=== PATIENT | female | born 1990 | race Caucasian/White ===

== ENCOUNTER 2023-11-12 19:01 | Observation (INO) | payer MEDICAID, SELFPAY ==
[2023-11-12] VITALS (25 sets, daily range): BP systolic 101–126; BP diastolic 53–97; PULSE 100–227; RESP 16–36; TEMP 37.9–38.1; O2SAT 95–100; BMI 28.3; BMI 30.1
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
--- NOTE | 2023-11-12 19:32 | ED.GENADULT ---
HPI - General Adult General Chief complaint: Alcohol/Intoxication Stated complaint: alcohol withdrawal Time Seen by Provider: 11/12/23 19:25 Source: patient Mode of arrival: ambulatory Limitations: no limitations History of Present Illness HPI narrative: 33-year-old female presenting today with alcohol withdrawal. Patient states that she has been drinking a L of crown daily for about a month. Her last drink she states was yesterday. Patient describes a history of seizure and delirium tremens with alcohol withdrawal. She states that she is having acute anxiety. She feels her heart racing. The other concerns she has she woke up this morning with a terrible sore throat and achiness from head to toe. She has been having chills today. And presents today with a temperature of 100.3?. She does tell me that she had a UTI last week and has finished her antibiotics. Patient does have a history of alcohol use disorder and anxiety, states she has not been taking any of her prescribed medications for several weeks now. Related Data Home Medications Medication Instructions Recorded Confirmed clindamycin phosphate 2 % vaginal 1 appful vaginal QPM 11/12/23 11/12/23 cream Allergies Allergy/AdvReac Type Severity Reaction Status Date / Time ketorolac Allergy Intermediate Verified 11/12/23 19:15 tramadol Allergy Verified 11/12/23 19:15 Review of Systems Status of ROS: Reports: 10 or more systems reviewed and unremarkable except as noted in History and below PFSH PFS Social History Smoking Status: Never smoker Do you use any of these nicotine containing products: None How often do you have a drink containing alcohol: 4 or more times a week How many standard drinks containing alcohol do you have on a typical day: 10 or more How often do you have six or more drinks on one occasion: Daily or almost daily AUDIT-C Alcohol total score: 12 Non-prescribed substance use: amphetamines/methamphetamines service: No Exam Narrative: Exam Narrative: Well-nourished well-developed patient, jittery, anxious. Alert and oriented x3. Answers questions appropriately. Mood and affect are appropriate. Thoughts are goal oriented and rational. No tangential or magical thinking noted. Patient speaks in full sentences without needing to catch her breath. Speech is not slurred or pressured. HEENT: Normocephalic atraumatic. Pupils are equally round reactive to light. Extraocular muscles are intact. Conjunctivae are moist without any icterus noted. Moist mucous membranes. Posterior pharynx is normal. Neck is soft without any lymphadenopathy or thyromegaly. No masses are appreciated. Cardiovascular: Tachycardic, no murmurs. Lungs: Clear to auscultation bilaterally no wheezes rhonchi or rales are appreciated. Patient takes deep breaths without any discomfort. Abdomen: Soft and nontender nondistended with normal bowel sounds. No guarding or rebound. Extremities: Bilateral lower extremities are without edema. Skin: Well perfused without any obvious rashes. Const: Vital Signs, click to edit/add: Vital Signs - 24 hr 11/12/23 19:06 11/12/23 19:23 11/12/23 19:25 Temperature 100.3 F H Pulse Rate 111 H Pulse Rate [Right Pulse Oximeter] 227 H Respiratory Rate 18 Blood Pressure 110/61 Blood Pressure [Ri ght Upper Arm] 114/60 Pulse Oximetry 97 99 97 Oxygen Delivery Me thod Room Air 11/12/23 19:26 11/12/23 19:30 11/12/23 19:31 Temperature Pulse Rate 112 H 112 H 115 H Pulse Rate [Right Pulse Oximeter] Respiratory Rate Blood Pressure 119/72 Blood Pressure [Ri ght Upper Arm] Pulse Oximetry 97 96 95 Oxygen Delivery Me thod 11/12/23 19:49 11/12/23 20:01 11/12/23 20:02 Temperature Pulse Rate 119 H Pulse Rate [Right Pulse Oximeter] Respiratory Rate Blood Pressure 126/97 H 113/62 Blood Pressure [Ri ght Upper Arm] Pulse Oximetry 99 Oxygen Delivery Me thod 11/12/23 20:15 11/12/23 20:16 Temperature Pulse Rate 122 H 121 H Pulse Rate [Right Pulse Oximeter] Respiratory Rate Blood Pressure 101/59 L Blood Pressure [Ri ght Upper Arm] Pulse Oximetry 98 100 Oxygen Delivery Me thod Course Course ED Course: IV was established and patient received a L of normal saline, phenobarbital and IV Ativan. EKG, read by me, shows sinus tachycardia with a pulse of 107, patient goes up in the 120s when I am in the room examining her. CBC shows an elevated white cell count 13.24, normal hematocrit hemoglobin, platelet count 247. Lactate elevated at 2.8. Urinalysis unremarkable. Urine drug screen positive for amphetamines, methamphetamines, benzodiazepines Electrolytes showing mild hyponatremia with a sodium of 134, otherwise unremarkable. Normal LFTs. Normal lipase. [place] screen negative. Strep DNA negative. Triple swab is negative. Lab work negative for salicylates, ethanol and acetaminophen. Chest x-ray pending at this time. Blood cultures and urine culture pending. Vital Signs Vital signs: Initial Vital Signs Temperature 100.3 F H 11/12/23 19:06 Temperature Source Temporal Artery Scan 11/12/23 19:06 Pulse Rate 227 H 11/12/23 19:06 Pulse Rhythm Regular 11/12/23 19:06 Respiratory Rate 18 11/12/23 19:06 Blood Pressure 114/60 11/12/23 19:06 Blood Pressure Mean 78 11/12/23 19:06 Blood Pressure Position Sitting 11/12/23 19:06 Pulse Oximetry 97 11/12/23 19:06 Oxygen Delivery Method Room Air 11/12/23 19:06 Vital Signs Temperature 100.3 F H 11/12/23 19:06 Pulse Rate 227 H 11/12/23 19:06 Respiratory Rate 18 11/12/23 19:06 Blood Pressure 114/60 11/12/23 19:06 Pulse Oximetry 97 11/12/23 19:06 Oxygen Delivery Method Room Air 11/12/23 19:06 Temperature 100.3 F H 11/12/23 19:06 Pulse Rate 121 H 11/12/23 20:16 Respiratory Rate 18 11/12/23 19:06 Blood Pressure 101/59 L 11/12/23 20:16 Pulse Oximetry 100 11/12/23 20:16 Oxygen Delivery Method Room Air 11/12/23 19:06 Medications Administered Medications: Discontinued Medications Generic Name Dose Route Start Last Admin Trade Name Freq PRN Reason Stop Dose Admin Sodium Chloride 1,000 mls @ 1,000 mls/hr 11/12/23 19:30 11/12/23 19:45 0.9 % Sodium Chloride 1000 Ml IV 11/12/23 20:29 1,000 mls/hr .Q1H JOSE Administration Lorazepam 1 mg 11/12/23 19:23 11/12/23 19:53 Lorazepam 2 Mg/Ml Inj IVP 11/12/23 19:24 1 mg ONCE ONE Administration Phenobarbital 130 mg 11/12/23 19:23 11/12/23 20:08 Phenobarbital 65 Mg/Ml Inj IVP 11/12/23 19:24 130 mg ONCE ONE Administration Medical Decision Making MDM Narrative Medical decision making narrative: 33-year-old female presenting in acute alcohol withdrawal and fever of unclear etiology. Patient will be admitted for further management. Lab Data Lab results reviewed: Yes I reviewed the patient's lab results Labs: Lab Results 11/12/23 11/12/23 11/12/23 Range/Units 19:36 19:50 19:55 WBC 13.24 H (4.50-11.00) K/uL RBC 4.10 (4.00-5.20) m/uL Hgb 13.0 (12.0-16.0) gm/dL Hct 39.8 (33.0-51.0) % MCV 97 (80-100) fL MCH 32 (26-34) pg MCHC 33 (32-36) gm/dL RDW Coeff of Stefan 12.6 (11.5-15.5) % Plt Count 247 (140-440) K/uL Neut % (Auto) 84.8 H (42.0-72.0) % Lymph % (Auto) 5.3 L (20-44) % [place] % (Auto) 9.3 (0.0-11.0) % Eos % (Auto) 0.1 (0.0-7.0) % Baso % (Auto) 0.2 (0.0-3.0) % Neut # (Auto) 11.20 H (1.7-7.0) K/uL Lymph # (Auto) 0.70 L (0.90-2.90) K/uL [place] # (Auto) 1.20 H (0.00-0.90) K/UL Eos # (Auto) 0.00 (0.00-0.50) K/uL Baso # (Auto) 0.00 (0.00-0.30) K/uL Abs Immat Gran (auto) 0.00 (0.00-0.30) K/uL Imm/Tot Granulo (auto) 0.3 % Sodium 134 L (135-149) mmol/L Potassium 3.7 (3.6-5.1) mmol/L Chloride 104 (96-114) mmol/L Carbon Dioxide 22 (20-32) mmol/L Anion Gap 8 (7-15) mEq/L BUN 11 (5-24) mg/dL Creatinine 0.9 (0.5-1.5) mg/dL Estimated Creat Clear 80.75 Estimated GFR 87 ml/min Glucose 97 (60-115) mg/dL Lactate 2.8 H (0.5-1.9) mmol/L Calcium 9.0 (8.4-10.6) mg/dL Magnesium 1.5 (1.5-2.6) mg/dL Total Bilirubin 0.5 (0.1-1.5) mg/dL Direct Bilirubin 0.1 (0.0-0.5) mg/dL AST 25 (12-35) U/L ALT 19 (4-35) U/L Alkaline Phosphatase 68 (40-150) U/L Total Protein 7.0 (6.0-8.3) g/dL Albumin 4.0 (3.3-5.0) g/dL Lipase 69 (23-300) U/L Urine Color Yellow (Yellow) Urine Appearance Slightly Cloudy A (Clear) Urine pH 7.0 (5.0-8.5) Ur Specific [place] 1.020 (1.000-1.030) Urine Protein Negative (Negative) Urine Glucose (UA) Negative (Negative) Urine Ketones Negative (Negative) Urine Blood Negative (Negative) Urine Nitrite Negative (Negative) Urine Bilirubin Negative (Negative) Urine Urobilinogen 1.0 (0.2-1.0) Ur Leukocyte Esterase Negative (Negative) Urine RBC 0-2 (0-2) Urine WBC 0-2 (0-5) Ur Squamous Epith Cells Moderate A (None-Few) Urine Bacteria Few A (None) Urine HCG, Qual Negative (Negative) Salicylates < 1.0 L (1.0-10) mg/dL Urine Opiates Screen Negative (Negative) Ur Oxycodone Screen Negative (Negative) Urine Methadone Screen Negative (Negative) Acetaminophen < 10.0 L (10.0-30.0) ug/mL Ur Barbiturates Screen Negative (Negative) U Tricyclic Antidepress Negative (Negative) Ur Phencyclidine Scrn Negative (Negative) Ur Amphetamines Screen POSITIVE A (Negative) U Methamphetamines Scrn POSITIVE A (Negative) U Benzodiazepines Scrn POSITIVE A (Negative) Urine Cocaine Screen Negative (Negative) U Marijuana (THC) Screen Negative (Negative) Ur Drug Screen Comment See Note Ethyl Alcohol < 0.01 L (0.01-0.03) % SARS-CoV-2 (PCR) Negative SARS-CoV-2 (Negative) Monoscreen Negative (Negative) Influenza Type A (PCR) Negative PCR FLU A (Negative) Influenza Type B (PCR) Negative PCR FLU B (Negative) RSV (PCR) Negative PCR RSV (Negative) Group A Strep DNA NOT DETECTED (Not Detectd) ECG Data Attestation: I personally reviewed and interpreted this ECG as follows: Discharge Plan Discharge Clinical Impression: Fever, Alcohol withdrawal syndrome Patient Disposition: Admitted As Observation Condition: Stable Prescriptions: No Action clindamycin phosphate 2 % cream 1 appful vaginal QPM Follow Up/Referrals: Provider,Not a Local [Primary Care Provider] -
[2023-11-12 19:45] LABS: Appearance Urine Slightly Cloudy (Clear); Bilirubin Urine Negative (Negative); Blood Urine Negative (Negative); Color Urine Yellow (Yellow); Glucose Urine Negative (Negative); Ketones Urine Negative (Negative); Leukocyte Esterase Urine Negative (Negative); Nitrite Urine Negative (Negative); Protein Urine Negative (Negative)
[2023-11-12] MEDS: 0.9 % SODIUM CHLORIDE 1000 ml 1,000 ML IV (19:45)
[2023-11-12] MEDS: LORazepam 2 MG/ML inj 1 MG IVP (19:53)
[2023-11-12 19:56] LABS: Amphetamine Screen Urine POSITIVE (Negative); Barbiturate Screen Urine Negative (Negative); Benzodiazepines Screen Urine POSITIVE (Negative); Cannabinoid Screen Urine Negative (Negative); Cocaine Screen Urine Negative (Negative); Methadone Screen Urine Negative (Negative); Methamphetamines Screen Urine POSITIVE (Negative); Opiate Screen Urine Negative (Negative); Oxycodone Screen Urine Negative (Negative); Phencyclidine Screen Urine Negative (Negative); Tricyclic Antidepressant Urine Negative (Negative)
[2023-11-12 19:59] LABS: Lactate* 2.8 mmol/L (0.5-1.9)
[2023-11-12 20:03] LABS: Basophils Percent Auto 0.2 % (0.0-3.0); Eosinophils Percent Auto 0.1 % (0.0-7.0); Hematocrit 39.8 % (33.0-51.0); Immature Granulocytes Pct Auto 0.3 %; Lymphocytes Percent Auto 5.3 % (20-44); Mean Corpuscular HGB Conc 33 gm/dL (32-36); Mean Corpuscular Hemoglobin 32 pg (26-34); Mean Corpuscular Volume 97 fL (80-100); Monocytes Percent Auto 9.3 % (0.0-11.0); Neutrophils Percent Auto 84.8 % (42.0-72.0); Platelet Count* 247 K/uL (140-440); RDW Coefficient of Variation % 12.6 % (11.5-15.5); White Blood Count* 13.24 K/uL (4.50-11.00)
[2023-11-12] MEDS: PHENobarbitaL 65 MG/ML inj 130 MG IVP (20:08)
[2023-11-12 20:14] LABS: Bacteria Urine Few; RBC Urine 0-2 (0-2); Squamous Epithelial Cell Urine Moderate (None-Few); Ur HCG Qualitative* Negative (Negative); WBC Urine 0-2 (0-5)
[2023-11-12 20:15] LABS: Slide Review Reflex No
[2023-11-12 20:17] LABS: Chloride* 104 mmol/L (96-114); Potassium* 3.7 mmol/L (3.6-5.1); Sodium* 134 mmol/L (135-149)
[2023-11-12 20:19] LABS: Alkaline Phosphatase* 68 U/L (40-150); Aspartate Amino Transferase* 25 U/L (12-35); Bilirubin Direct* 0.1 mg/dL (0.0-0.5); Bilirubin Total* 0.5 mg/dL (0.1-1.5); Lipase* 69 U/L (23-300); Magnesium* 1.5 mg/dL (1.5-2.6)
[2023-11-12 20:20] LABS: Alanine Aminotransferase* 19 U/L (4-35); Anion Gap 8 mEq/L (7-15); Blood Urea Nitrogen* 11 mg/dL (5-24); Carbon Dioxide* 22 mmol/L (20-32); Creatinine* 0.9 mg/dL (0.5-1.5); Est. Creatinine Clearance* 80.75; Estimated Glomerular Filt Rate 87 ml/min
[2023-11-12 20:21] LABS: Glucose* 97 mg/dL (60-115)
[2023-11-12 20:24] LABS: Acetaminophen* < 10.0 ug/mL (10.0-30.0); Ethanol* < 0.01 % (0.01-0.03); Salicylate* < 1.0 mg/dL (1.0-10)
[2023-11-12 20:25] LABS: Mono Screen* Negative (Negative)
[2023-11-12 20:26] LABS: Strep A DNA Probe* NOT DETECTED (Not Detectd)
[2023-11-12 20:40] LABS: PCR FLU A Negative PCR FLU A (Negative); PCR FLU B Negative PCR FLU B (Negative); PCR RSV Negative PCR RSV (Negative); SARS PCR* Negative SARS-CoV-2 (Negative)
--- NOTE | 2023-11-12 20:46 | XR_ITS ---
Final Report Patient: SHANIQUA TORRE Facility:?[facility] Patient ID:?[id number] Site Patient ID:?[id number]. Site :?[id number] Study:?XRay Chest 2V-11/12/2023 9:24:46 PM Ordering Physician:ARELY Final Report: INDICATION: Cough, upper back chest pain TECHNIQUE: Chest radiograph 2 views COMPARISON: None FINDINGS: Mediastinum: The mediastinum is normal in appearance. The heart silhouette is normal in size and morphology. Lung: Both lungs are unremarkable in appearance. No sign of pleural effusion seen. No pneumothorax is identified. Bone and Soft tissue: Unremarkable for age. IMPRESSION: 1. No acute cardiopulmonary disease is seen. Dictated by: Chip Brooks MD @ 11/12/2023 21:48:47 (Electronic Signature)
[2023-11-12] MEDS: LACTATED RINGERS 1000 ML 1,000 ML 500 ML IV (20:55)
[2023-11-12] MEDS: ACETAMINOPHEN 500 MG TABLET PO (21:06)
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
[2023-11-12 23:27] LABS: Lactate* 2.9 mmol/L (0.5-1.9)
[2023-11-13] VITALS (21 sets, daily range): BP systolic 89–115; BP diastolic 54–95; PULSE 73–111; RESP 16–24; TEMP 36.4–37.5; O2SAT 95–98
[2023-11-13] MEDS: 0.9 % SODIUM CHLORIDE 1000 ml 1,000 ML IV
[2023-11-13] MEDS: IBUPROFEN 400 MG TABLET PO ×3 (00:08→15:52)
[2023-11-13] MEDS: GABAPENTIN 100 MG CAPSULE 200 MG PO (00:48)
[2023-11-13] MEDS: GABAPENTIN 300 MG CAPSULE PO (00:48)
[2023-11-13] MEDS: cefTRIAXone 1 GM in 0.9 % SODIUM CHLORIDE Mini-bag 100 ML IVPB (01:28)
[2023-11-13] MEDS: PHENobarbitaL 130 MG in 0.9 % SODIUM CHLORIDE 100 ml 100 ML 204 MG IVPB (02:14)
[2023-11-13 02:51] LABS: Lactate* 1.6 mmol/L (0.5-1.9)
[2023-11-13] MEDS: clonazePAM 0.5 MG TABLET PO (03:04)
[2023-11-13] MEDS: LORazepam 2 MG/ML inj IVP ×5 (06:44→21:35)
[2023-11-13] MEDS: BENZOCAINE/MENTHOL 1 EACH LOZENGE MUCOUS MEM ×3 (06:44→15:52)
[2023-11-13 07:15] LABS: Basophils Percent Auto 0.2 % (0.0-3.0); Eosinophils Percent Auto 0.8 % (0.0-7.0); Hematocrit 36.4 % (33.0-51.0); Hemoglobin* 12.1 gm/dL (12.0-16.0); Immature Granulocytes Pct Auto 0.3 %; Lymphocytes Percent Auto 13.8 % (20-44); Mean Corpuscular HGB Conc 33 gm/dL (32-36); Mean Corpuscular Hemoglobin 32 pg (26-34); Mean Corpuscular Volume 97 fL (80-100); Monocytes Percent Auto 10.9 % (0.0-11.0); Platelet Count* 229 K/uL (140-440); RDW Coefficient of Variation % 12.7 % (11.5-15.5); Red Blood Count 3.74 m/uL (4.00-5.20); White Blood Count* 11.89 K/uL (4.50-11.00)
[2023-11-13 07:25] LABS: Chloride* 112 mmol/L (96-114); Sodium* 136 mmol/L (135-149)
[2023-11-13 07:26] LABS: Potassium* 4.1 mmol/L (3.6-5.1)
[2023-11-13 07:28] LABS: Creatinine* 0.8 mg/dL (0.5-1.5); Est. Creatinine Clearance* 90.84; Estimated Glomerular Filt Rate 100 ml/min
[2023-11-13 07:29] LABS: Anion Gap 4 mEq/L (7-15); Blood Urea Nitrogen* 12 mg/dL (5-24); Calcium* 8.3 mg/dL (8.4-10.6); Carbon Dioxide* 20 mmol/L (20-32); Glucose* 109 mg/dL (60-115)
--- NOTE | 2023-11-13 07:30 | PC.NURSE ---
End of shift [id number]: Pt admitted from the ER via stretcher at 2130. Pt is A&O and independent/SBA in her room. Elevated HR on TELE reading ST 1-teens to 120s bpm. Pt was febrile upon arrival but fever broke around 0200. T-max: 100.5. She c/o severe headache radiating down her posterior neck and throughout her back rating pain 8/10 - PRN ibuprofen given x1 at 0010. CIWA score q1H x3: 9 > 6 > 0. Pt received PRN IV Ativan x1 at 0010. Lactate was still elevated from ER draw so she received an extra 1L NS bolus on the unit with a Lactate redraw @ 0300: 1.6. Received PRN clonazepam at 0305 for anxiety. PIV in left AC SL and C/D/I; reinforced dressing with Tubi-cop examiner roll. Pt had x1 loose BM overnight. She refused her nicotine patch at the scheduled time. Pt had a large quantity of food and snacks ordered from [employer] and she has been munching on chips and [place] ranc[place] all night. Pt is receiving IV Rocephin q24H for UTI previously being treated with PO Macrobid.?
[2023-11-13] MEDS: ONDANSETRON ODT 4 MG TAB PO (07:47)
[2023-11-13 07:52] LABS: Slide Review Reflex No
[2023-11-13 09:36] LABS: Chlamydia DNA Amplified* Not Detected (No Detected); GC DNA Amplified* Not Detected (No Detected)
[2023-11-13] MEDS: PHENobarbitaL 32.4 MG TABLET 162 MG PO ×2 (11:26→21:34)
[2023-11-13] MEDS: ACETAMINOPHEN 325 MG TABLET 650 MG PO (11:31)
[2023-11-13] MEDS: THIAMINE 100 MG TABLET 250 MG PO ×2 (11:35→21:25)
[2023-11-13] MEDS: FOLIC ACID 1 MG TABLET PO (11:36)
[2023-11-13] MEDS: MULTIVITAMIN/MINERALS 1 TABLET 1 TAB PO (11:36)
[2023-11-13] MEDS: SODIUM CHLORIDE 0.9 % (FLUSH) 10 ML SYRINGE 5 ML IVF ×2 (11:59→21:35)
[2023-11-13] MEDS: PHENAZOPYRIDINE HCL 200 MG TABLET PO ×2 (11:59→21:25)
[2023-11-13 13:42] LABS: Lactate* 1.6 mmol/L (0.5-1.9)
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
--- NOTE | 2023-11-13 18:52 | PC.NURSE ---
End of shift-- Pt has been alert, oriented, primarily pleasant and cooperative. VSS, though borderline hypotensive, and pt has been afebrile. SPO2 maintained >90% on RA. She c/o body aches and a sore throat today which she rated as high as 6 out of 10, but it appears well managed with Ibuprofen and Tylenol. CIWA 1-11 today and she has been given 1mg of Ativan twice today. LS CTA. She c/o nausea this morning and was given Zofran and denied nausea the rest of the day. She tolerated a regular diet without difficulty. Parents were at bedside this afternoon.
[2023-11-14] VITALS (7 sets, daily range): BP systolic 108–113; BP diastolic 67–70; PULSE 78–104; RESP 18–20; TEMP 36.7; O2SAT 92–98
[2023-11-14] MEDS: cefTRIAXone 1 GM in 0.9 % SODIUM CHLORIDE Mini-bag 100 ML IVPB (00:56)
[2023-11-14] MEDS: GABAPENTIN 100 MG CAPSULE 200 MG PO (01:48)
[2023-11-14] MEDS: LORazepam 2 MG/ML inj IVP (01:48)
[2023-11-14] MEDS: GABAPENTIN 300 MG CAPSULE PO (01:48)
[2023-11-14] MEDS: BENZOCAINE/MENTHOL 1 EACH LOZENGE MUCOUS MEM (04:15)
[2023-11-14] MEDS: IBUPROFEN 400 MG TABLET PO ×2 (04:17→08:40)
[2023-11-14 05:45] LABS: Strep A DNA Probe* NOT DETECTED (Not Detectd)
--- NOTE | 2023-11-14 06:23 | PC.NURSE ---
End of shift report [id number]: Alert and oriented x 4. Patient reporting increased anxiety and perspiration. CIWA score of 10, ativan administered with moderate relief of symptoms. Bedding and gown change completed x 2 due to perspiration. At 0400 patient reporting increased throat pain, keno writer / runner inspected oral cavity and throat, area at back of throat extending up the pharnyx white, appears to be pus. Patient requesting repeat strep test as she feels the first test wasn't a good sample. manager call provider updated, new order to repeat strep A test. Extra Hand was able to get small amount of white spot from throat onto swab.
[2023-11-14] MEDS: THIAMINE 100 MG TABLET 250 MG PO (08:38)
[2023-11-14] MEDS: FOLIC ACID 1 MG TABLET PO (08:39)
[2023-11-14] MEDS: MULTIVITAMIN/MINERALS 1 TABLET 1 TAB PO (08:40)
[2023-11-14] MEDS: SODIUM CHLORIDE 0.9 % (FLUSH) 10 ML SYRINGE 5 ML IVF (08:40)
[2023-11-14] MEDS: LORazepam 0.5 MG TABLET PO (09:31)
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
--- NOTE | 2023-11-14 12:16 | PC.NURSE ---
Discharge: patient discharged today at 1055 to home accompanied by Mom. patient alert and oriented, tolerating a reg diet, denies pain, CIWA score 4. PRN ativan administered x1 for anxiety. Patient's IV removed intact and belongings sheet signed, home meds returned. Patient verbalized understanding of discharge instructions and signed discharge paperwork.
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
== END 2023-11-14 10:55 | disposition home or self-care (01) ==
LOC: ED 20:52 → MEDSURG 21:40
PROVIDERS: Family Medicine; Internal Medicine; Admitting Provider Family Medicine; Emergency Provider Family Medicine; Visit Provider Family Medicine
DX: F10.939 Alcohol use, unspecified with withdrawal, unspecified (principal); F15.90 Other stimulant use, unspecified, uncomplicated; Z91.148 Patient's other noncompliance with medication regimen for other reason; R50.9 Fever, unspecified; R19.7 Diarrhea, unspecified; R30.0 Dysuria; M54.9 Dorsalgia, unspecified; R30.9 Painful micturition, unspecified; R00.0 Tachycardia, unspecified; J02.9 Acute pharyngitis, unspecified; M79.10 Myalgia, unspecified site; R74.02 Elevation of levels of lactic acid dehydrogenase [LDH]; D72.829 Elevated white blood cell count, unspecified; R82.90 Unspecified abnormal findings in urine; E87.1 Hypo-osmolality and hyponatremia; F41.1 Generalized anxiety disorder; F32.A Depression, unspecified; J45.909 Unspecified asthma, uncomplicated; F17.210 Nicotine dependence, cigarettes, uncomplicated; F17.290 Nicotine dependence, other tobacco product, uncomplicated; F12.90 Cannabis use, unspecified, uncomplicated; F43.23 Adjustment disorder with mixed anxiety and depressed mood; R51.9 Headache, unspecified; R39.9 Unspecified symptoms and signs involving the genitourinary system; Z86.16 Personal history of COVID-19; F43.10 Post-traumatic stress disorder, unspecified; F40.01 Agoraphobia with panic disorder; Z90.89 Acquired absence of other organs; Z87.898 Personal history of other specified conditions
CPT/HCPCS: 36415; 71046; 80048; 80076; 80143; 80179; 80306; 81001; 81025; 82077; 83605; 83690; 83735; 85025; 86308; 87040; 87086; 87186; 87491; 87591; 87631; 87651; 93005; 94761; 96361; 96365; 96366; 96367; 96375; 96376; 99284; 99285; G0378; A9153; A9270; J0696; J2060; J2560; J7030; J7120

== ENCOUNTER 2023-11-27 09:46 | Emergency (ER) | payer MEDICAID, SELFPAY ==
[2023-11-27 09:55] VITALS: BP 116/69; PULSE 90; RESP 16; TEMP 36.7; O2SAT 98
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
[2023-11-27] MEDS: ONDANSETRON ODT 4 MG TAB PO (11:17)
[2023-11-27] MEDS: LORazepam 1 MG TABLET PO (11:17)
[2023-11-27 11:28] VITALS: PULSE 79; O2SAT 94
== END 2023-11-27 11:47 | disposition other institution (70) ==
LOC: ED 11:30
PROVIDERS: Emergency Provider Family Medicine
DX: F41.9 Anxiety disorder, unspecified (principal); F15.10 Other stimulant abuse, uncomplicated
CPT/HCPCS: 99282; 99284; A9270

== ENCOUNTER 2023-11-27 11:35 | Outpatient (CLI) | payer MEDICAID, SELFPAY | END 2023-11-27 11:36 | disposition home or self-care (01) | LOC: AMB 12-03 22:44 | PROVIDERS: Visit Provider Family Medicine | DX: F10.939 Alcohol use, unspecified with withdrawal, unspecified (principal) | CPT/HCPCS: A0425; A0428 ==

== ENCOUNTER 2024-01-23 04:22 | Emergency (ER) | payer BC, SELFPAY ==
[2024-01-23 04:32] VITALS: BP 109/71; PULSE 97; RESP 18; TEMP 37.1; O2SAT 99; BMI 29.1
[2024-01-23 04:44] LABS: Amphetamine Screen Urine POSITIVE (Negative); Barbiturate Screen Urine Negative (Negative); Benzodiazepines Screen Urine Negative (Negative); Cannabinoid Screen Urine Negative (Negative); Cocaine Screen Urine Negative (Negative); Methadone Screen Urine Negative (Negative); Methamphetamines Screen Urine POSITIVE (Negative); Opiate Screen Urine Negative (Negative); Oxycodone Screen Urine Negative (Negative); Phencyclidine Screen Urine Negative (Negative); Tricyclic Antidepressant Urine Negative (Negative)
[2024-01-23 04:45] LABS: Ur HCG Qualitative* Negative (Negative)
[2024-01-23] MEDS: LORazepam 1 MG TABLET PO (04:53)
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
[2024-01-23 06:30] VITALS: BP 111/72; PULSE 84; RESP 18; TEMP 37.1; O2SAT 99
[2024-01-23 07:05] VITALS: BP 111/72; PULSE 84; RESP 18; TEMP 37.1
== END 2024-01-23 07:07 | disposition home or self-care (01) ==
PROVIDERS: Emergency Provider Family Medicine
DX: F15.980 Other stimulant use, unspecified with stimulant-induced anxiety disorder (principal)
CPT/HCPCS: 80306; 81025; 99283; 99284; A9270

== ENCOUNTER 2024-02-24 07:44 | Emergency (ER) | payer BC, SELFPAY ==
[2024-02-24] VITALS (8 sets, daily range): BP systolic 95–127; BP diastolic 59–93; PULSE 78–114; RESP 18; TEMP 36.8; O2SAT 98–100
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
[2024-02-24 08:29] LABS: Amphetamine Screen Urine POSITIVE (Negative); Barbiturate Screen Urine Negative (Negative); Benzodiazepines Screen Urine Negative (Negative); Cannabinoid Screen Urine Negative (Negative); Cocaine Screen Urine Negative (Negative); Methadone Screen Urine Negative (Negative); Methamphetamines Screen Urine POSITIVE (Negative); Opiate Screen Urine Negative (Negative); Oxycodone Screen Urine Negative (Negative); Phencyclidine Screen Urine Negative (Negative); Tricyclic Antidepressant Urine Negative (Negative)
--- NOTE | 2024-02-24 08:58 | ED.NURSE ---
CIWA score of 21, at this time.
== END 2024-02-24 10:56 | disposition home or self-care (01) ==
PROVIDERS: Emergency Provider Emergency Medicine; PCP Physician Assistant
DX: F10.129 Alcohol abuse with intoxication, unspecified (principal); R41.82 Altered mental status, unspecified; R20.2 Paresthesia of skin
CPT/HCPCS: 80306; 99284

== ENCOUNTER 2024-03-01 20:20 | Emergency (ER) | payer BC, SELFPAY ==
[2024-03-01 20:26] VITALS: BP 122/73; PULSE 104; RESP 16; TEMP 36.8; O2SAT 100; BMI 30.8
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
== END 2024-03-01 21:00 | disposition home or self-care (01) ==
LOC: ED 20:56
PROVIDERS: Emergency Provider Emergency Medicine; PCP Physician Assistant
DX: H10.9 Unspecified conjunctivitis (principal)
CPT/HCPCS: 99283

== ENCOUNTER 2024-03-18 16:10 | Emergency (ER) | payer BC, SELFPAY ==
[2024-03-18] VITALS (25 sets, daily range): BP systolic 110–129; BP diastolic 72–83; PULSE 82–110; RESP 16–20; TEMP 35.6–38; O2SAT 94–100
[2024-03-18 16:54] LABS: Ur HCG Qualitative* Negative (Negative)
[2024-03-18 16:56] LABS: Appearance Urine Clear (Clear); Bilirubin Urine Negative (Negative); Blood Urine Negative (Negative); Color Urine Yellow (Yellow); Glucose Urine Negative (Negative); Ketones Urine Negative (Negative); Leukocyte Esterase Urine Negative (Negative); Nitrite Urine Negative (Negative); Protein Urine Negative (Negative); Urobilinogen Urine 0.2 (0.2-1.0); pH Urine 5.5 (5.0-8.5)
[2024-03-18 17:02] LABS: Amphetamine Screen Urine POSITIVE (Negative); Barbiturate Screen Urine Negative (Negative); Benzodiazepines Screen Urine Negative (Negative); Cannabinoid Screen Urine Negative (Negative); Cocaine Screen Urine Negative (Negative); Methadone Screen Urine Negative (Negative); Methamphetamines Screen Urine POSITIVE (Negative); Opiate Screen Urine Negative (Negative); Oxycodone Screen Urine Negative (Negative); Phencyclidine Screen Urine Negative (Negative); RBC Urine 0-2 (0-2); Tricyclic Antidepressant Urine Negative (Negative); WBC Urine 0-2 (0-5)
[2024-03-18] MEDS: diazePAM 5 MG/ML inj IV (17:05)
[2024-03-18] MEDS: 0.9 % SODIUM CHLORIDE 1000 ml 1,000 ML IV (17:07)
[2024-03-18 17:16] LABS: Lactate* 2.8 mmol/L (0.5-1.9)
[2024-03-18 17:18] LABS: Basophils Absolute Auto 0.02 K/uL (0.00-0.30); Basophils Percent Auto 0.2 % (0.0-3.0); Eosinophils Absolute Auto 0.04 K/uL (0.00-0.50); Eosinophils Percent Auto 0.4 % (0.0-7.0); Hematocrit 40.1 % (33.0-51.0); Hemoglobin* 13.4 gm/dL (12.0-16.0); Immature Granulocytes Abs Auto 0.01 K/uL (0.00-0.30); Immature Granulocytes Pct Auto 0.1 %; Lymphocytes Percent Auto 28.3 % (20-44); Mean Corpuscular HGB Conc 33 gm/dL (32-36); Mean Corpuscular Hemoglobin 31 pg (26-34); Mean Corpuscular Volume 93 fL (80-100); Monocytes Percent Auto 8.2 % (0.0-11.0); Neutrophils Absolute Auto 5.76 K/uL (1.7-7.0); Neutrophils Percent Auto 62.8 % (42.0-72.0); Platelet Count* 283 K/uL (140-440); RDW Coefficient of Variation % 13.3 % (11.5-15.5); Red Blood Count 4.31 m/uL (4.00-5.20); White Blood Count* 9.18 K/uL (4.50-11.00)
[2024-03-18 17:20] LABS: Slide Review Reflex No
[2024-03-18 17:39] LABS: Albumin* 4.8 g/dL (3.3-5.0); Chloride* 107 mmol/L (96-114)
[2024-03-18 17:40] LABS: Sodium* 140 mmol/L (135-149)
[2024-03-18] MEDS: PHENobarbitaL 65 MG/ML inj 130 MG IVP (17:40)
[2024-03-18 17:41] LABS: Potassium* 3.6 mmol/L (3.6-5.1)
[2024-03-18 17:42] LABS: Creatinine* 0.8 mg/dL (0.5-1.5); Est. Creatinine Clearance* 90.84; Estimated Glomerular Filt Rate 100 ml/min
[2024-03-18 17:43] LABS: Alanine Aminotransferase* 26 U/L (4-35); Alkaline Phosphatase* 78 U/L (40-150); Anion Gap 13 mEq/L (7-15); Aspartate Amino Transferase* 33 U/L (12-35); Bilirubin Direct* 0.3 mg/dL (0.0-0.5); Bilirubin Total* 0.4 mg/dL (0.1-1.5); Blood Urea Nitrogen* 12 mg/dL (5-24); Calcium* 8.5 mg/dL (8.4-10.6); Carbon Dioxide* 20 mmol/L (20-32); Glucose* 84 mg/dL (60-115); Lipase* 52 U/L (23-300); Total Protein* 7.6 g/dL (6.0-8.3)
[2024-03-18 17:44] LABS: Ethanol* 0.25 % (0.01-0.03); Magnesium* 2.1 mg/dL (1.5-2.6)
[2024-03-18 17:46] LABS: Acetaminophen* < 10.0 ug/mL (10.0-30.0); C Reactive Protein* < 0.5 mg/dL (0.5-1.0); Salicylate* < 1.0 mg/dL (1.0-10)
[2024-03-18 18:27] LABS: PCR FLU A Negative PCR FLU A (Negative); PCR FLU B Negative PCR FLU B (Negative); PCR RSV Negative PCR RSV (Negative); SARS PCR* Negative SARS-CoV-2 (Negative)
[2024-03-18 19:13] LABS: Lactate* 2.5 mmol/L (0.5-1.9)
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
== END 2024-03-18 22:25 | disposition home or self-care (01) ==
PROVIDERS: Emergency Provider Family Medicine; PCP Physician Assistant
DX: F10.129 Alcohol abuse with intoxication, unspecified (principal)
CPT/HCPCS: 36415; 80048; 80076; 80143; 80179; 80306; 81001; 81025; 82077; 83605; 83690; 83735; 85025; 86140; 87040; 87086; 87631; 93005; 94761; 96374; 96375; 99284; 99285; J2560; J3360; J7030

== ENCOUNTER 2024-03-21 17:55 | Emergency (ER) | payer BC, SELFPAY ==
[2024-03-21 18:02] VITALS: BP 118/77; PULSE 81; RESP 20; TEMP 37; O2SAT 97; BMI 29.8
[2024-03-21 18:05] LABS: Appearance Urine Slightly Cloudy (Clear); Bilirubin Urine Negative (Negative); Blood Urine 3+ (Negative); Color Urine Orange (Yellow); Glucose Urine Negative (Negative); Ketones Urine Negative (Negative); Leukocyte Esterase Urine Negative (Negative); Nitrite Urine Negative (Negative); Protein Urine Negative (Negative); Specific Gravity Urine 1.025 (1.000-1.030); Urobilinogen Urine 0.2 (0.2-1.0)
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
[2024-03-21 18:15] LABS: Bacteria Urine Few; Squamous Epithelial Cell Urine Moderate (None-Few)
== END 2024-03-21 18:55 | disposition home or self-care (01) ==
PROVIDERS: Emergency Provider Emergency Medicine Emergency Medical Services; PCP Physician Assistant
DX: N39.0 Urinary tract infection, site not specified (principal)
CPT/HCPCS: 81001; 87086; 99283; 99284

== ENCOUNTER 2024-03-25 00:22 | Emergency (ER) | payer BC, SELFPAY ==
[2024-03-25 00:26] VITALS: BP 132/74; PULSE 84; RESP 20; TEMP 36.7; O2SAT 99; BMI 28.3
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
[2024-03-25 01:00] VITALS: BP 128/70; PULSE 81; RESP 20; TEMP 36.7; O2SAT 99
== END 2024-03-25 01:00 | disposition home or self-care (01) ==
LOC: ED 00:46
PROVIDERS: Emergency Provider Internal Medicine; PCP Physician Assistant
DX: F41.1 Generalized anxiety disorder (principal)
CPT/HCPCS: 99282; 99283

== ENCOUNTER 2024-04-18 00:35 | Emergency (ER) | payer BC, SELFPAY ==
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
[2024-04-18 01:02] VITALS: BP 130/92; PULSE 90; RESP 18; TEMP 37.2; O2SAT 99; BMI 29.1
[2024-04-18 01:59] LABS: Ethanol* 0.29 % (0.01-0.03)
[2024-04-18] MEDS: NICOTINE 4 MG GUM BUCCAL (02:09)
[2024-04-18 03:33] VITALS: BP 118/71; PULSE 99; RESP 16; TEMP 36.9
== END 2024-04-18 03:36 | disposition home or self-care (01) ==
PROVIDERS: Emergency Provider Family Medicine; PCP Physician Assistant
DX: F10.129 Alcohol abuse with intoxication, unspecified (principal); F19.90 Other psychoactive substance use, unspecified, uncomplicated
CPT/HCPCS: 36415; 82077; 99283; 99284